=== PATIENT | female | born 1980 | race Hispanic/Latino ===

== ENCOUNTER 2017-12-24 11:54 | Day surgery (SDC) | payer OTHER ==
[2017-12-24 12:52] VITALS: BMI 27.2
[2017-12-24 13:28] LABS: Hemoglobin A1c 5.1 % (4.0-6.0)
[2017-12-24 13:43] LABS: ALT (SGPT) 28 U/L (8-55); AST (SGOT) 22 U/L (5-34); Albumin 3.4 g/dL (3.5-5.0); Alkaline Phosphatase 96 U/L (40-150); Anion Gap 10 mmol/L (10-20); BUN (Urea Nitrogen) 6 mg/dL (7.0-18.7); Bilirubin, Total 0.4 mg/dL (0.2-1.2); Calc. Creatinine Clearance 138 mL/min (70-130); Calcium 9.6 mg/dL (7.8-10.44); Carbon Dioxide 22 mmol/L (22-29); Chloride 107 mmol/L (98-107); Estimated GFR-MDRD Greater than 90; Globulin 3.2 g/dL (2.4-3.5); Glucose 78 mg/dL (70-105); Potassium 3.7 mmol/L (3.5-5.1); Protein, Total 6.6 g/dL (6.0-8.3); Sodium 135 mmol/L (136-145)
--- NOTE | 2017-12-24 14:31 | ULT ---
SONOGRAPHIC BIOPHYSICAL PROFILE EXAM LIMITED OBSTETRIC SONOGRAM: HISTORY: Abnormal office ultrasound. Polyhydramnios. Third-trimester . FINDINGS: Multiple transabdominal sonographic views of the gravid uterus show intrauterine gestation in cephali c presentation. Cervix is partially obscured. It is closed and measures up to 5.1 cm length. Grade II placenta is anterior. Four-chamber heart shows motion at 128 b.p.m. Three-vessel cord shows a n ormal insertion. spine and kidneys are intact as visualized. No gross intracranial abnormalit ies are apparent. Amniotic fluid index=28.4. Good tone and gross movements were demonstrated at sonography. Breathing movements were not do cumented. There is moderate distention of the right renal pelvis. Urinary bladder measures up to 4.8 cm diamet er. IMPRESSION: 1. Sonographic biophysical profile score is 6/8. 2. Polyhydramnios. 3. Distention of the urinary bladder, up to 4.8 cm. Mild right hydronephrosis of the fetus. POS: [facility]
== END 2017-12-24 15:42 | disposition home or self-care (01) ==
LOC: L&D/OP 11:54
PROVIDERS: ATTEND Student in an Organized Health Care Education/Training Program
DX: O28.3 Abnormal ultrasonic finding on antenatal screening of mother (principal); O40.3XX0 Polyhydramnios, third trimester, not applicable or unspecified; Z3A.00 Weeks of gestation of pregnancy not specified; Z79.899 Other long term (current) drug therapy; Z90.49 Acquired absence of other specified parts of digestive tract
CPT/HCPCS: 36415; 59025; 76819; 80053; 82239; 83036; 84443; 99282

== ENCOUNTER 2018-01-17 08:42 | Inpatient (IN) | payer MEDICAID, OTHER, SELFPAY ==
[2018-01-17] MEDS ORDERED: Carboprost 250 MCG/ML AMP IM PRN (23:34)
[2018-01-17] MEDS ORDERED: Misoprostol 200 MCG TAB PR PRN (23:34)
[2018-01-17] MEDS ORDERED: Ibuprofen 800 MG TAB PO PRN (23:34)
[2018-01-17] MEDS ORDERED: HYDROcodone/Acetaminophen 5/325 mg Tablet PO PRN (23:34)
[2018-01-17] MEDS ORDERED: Promethazine HCl 25 MG/ML VIAL IM PRN (23:34)
[2018-01-17] MEDS ORDERED: Diphenoxylate HCl/Atropine Tablet PO PRN (23:34)
[2018-01-17] MEDS ORDERED: Ondansetron HCl/PF 4 MG/2 ML Vial IVP PRN (23:34)
[2018-01-17] MEDS ORDERED: LR 500 ML/Oxytocin 10 units 500 ML IV SCH (23:34)
[2018-01-17] MEDS ORDERED: Lidocaine 1% (PF) 30 ML VIAL SC PRN (23:34)
[2018-01-17] MEDS ORDERED: Zolpidem Tartrate 5 MG TAB PO PRN (23:34)
[2018-01-17] MEDS ORDERED: Acetaminophen 500 MG TAB PO PRN (23:34)
[2018-01-17] MEDS ORDERED: Methylergonovine 0.2 MG/ML VIAL IM PRN (23:34)
[2018-01-17] MEDS: Lactated Ringer's 1,000 ML IV SCH (23:45)
[2018-01-17 23:48] LABS: Hemoglobin 13.8 g/dL (12.0-16.0); Mean Corpuscular HGB CONC 34.2 g/dL (32.0-36.0); Mean Corpuscular Hemoglobin 32.4 pg (27.0-31.0); Mean Corpuscular Volume 94.9 fl (81.0-99.0); Mean Platelet Volume 8.3 fL (7.4-10.4); Platelet Count 226 thou/uL (130-400); RBC Distribution Width 12.1 % (11.5-14.5); Red Blood Cell (RBC) Count 4.25 mill/uL (4.20-5.40); White Blood Cell (WBC) Count 9.9 thou/uL (4.8-10.8)
[2018-01-17 23:58] VITALS: BMI 24.9
[2018-01-18 00:26] LABS: Syphilis Antibody Nonreactive (Nonreactive); Syphilis Antibody Index 0.04 S/CO (<1.00 Non-Reactive)
[2018-01-18 00:27] LABS: HBSAg Index 0.13 S/CO (0-0.99); Hep B Surf Ag Non-Reactive S/CO (NonReactive)
[2018-01-18] MEDS: Misoprostol 100 MCG TAB VAG SCH ×4 (01:04→08:17)
[2018-01-18] MEDS: Lactated Ringer's 1,000 ML IV SCH ×3 (05:04→13:14)
--- NOTE | 2018-01-18 08:18 | PDOC.LDHP ---
Labor and Delivery H&P Chief complaint: scheduled induction HPI: 37yo at 39w0d by LMP here for IOL. Has polyhydramnios and hydronephrosis and enlarged bladder. s/p MFM consult. Pt is for outpt fu with pedi urology after discharge. Ctx pain 3/10, declines epidural. Current gestational age (weeks): 39 Due date: 01/24/18 Dating criteria: last menstrual period Grav: 4 Para: 3 Abnormal US findings: Yes (left hydronephrosis and hydroureter, ureterocele and enlarged bladder, poly) Past Medical History: hypothyroid Current medications: pre-ritu vitamins Previous surgical history: appendectomy Allergies/Adverse Reactions: Allergies Allergy/AdvReac Type Severity Reaction Status Date / Time No Known Allergies Allergy Verified 01/17/18 23:40 Social history: none - Physical Exam Vital signs reviewed and normal: yes General: NAD Heart: RRR Lungs: CTAB Abdomen: gravid Extremeties: no edema FHT: category 1 [place] contractions every: q2-5min - Vaginal Exam cm dilated: 3 Effacement: 50% Station: -3 (arom clear) - OB Labs Blood type: O RH: positive Antibody Screen: negative HIV: negative RPR: negative HEPSAg: negative 1 hour GCT: positive 3 hour GTT: negative GBS: negative Rubella: immune - Assessment L&D Assessment: medically indicated induction - Plan Plan: admit to L&D, cervical ripening (s/p cytotec x 1), labor augmentation if indicated, informed consent obtained, other (pedi urology follow up on discharge )
[2018-01-18] MEDS ORDERED: Eucerin (Mineral Oil/Petrolatum,White) 30 gm Jar TOP PRN (09:19)
[2018-01-18] MEDS ORDERED: diphenhydrAMINE 50 MG/ML VIAL IVP PRN (09:19)
[2018-01-18] MEDS ORDERED: Lactated Ringer's 500 ML IV PRN (09:19)
[2018-01-18] MEDS ORDERED: Naloxone HCl 0.4 mg/ml Vial IVP PRN ×2 (09:19)
[2018-01-18] MEDS ORDERED: Acetaminophen 325 MG TAB PO PRN (09:19)
[2018-01-18] MEDS ORDERED: Ondansetron HCl/PF 4 MG/2 ML Vial IVP PRN ×2 (09:19→17:45)
[2018-01-18] MEDS ORDERED: ePHEDrine/0.9% NaCl/PF SYRINGE 50 mg/10 ml SLOW IVP PRN (09:19)
[2018-01-18] MEDS ORDERED: Promethazine HCl 25 MG/ML VIAL IM PRN (09:19)
[2018-01-18] MEDS ORDERED: Communication Order-Pharmacy FS SCH (09:30)
[2018-01-18] MEDS ORDERED: Bupivacaine 0.5% 20 ML, Fentanyl 400 MCG in Sodium Chloride 0.9% 72 ML EPIDURAL SCH (09:30)
[2018-01-18] MEDS ORDERED: Fentanyl 4mcg/Marcaine 0.1% Cassette 100 ML EPIDURAL SCH (09:30)
[2018-01-18] MEDS: LR / Pitocin 40 units/1000 ml 1,000 ML IV PRN ×2 (16:40→17:39)
--- NOTE | 2018-01-18 16:46 | PDOC.OPDEL ---
OB Operative/Delivery Note Delivery Dr/Surgeon: Kayla Assist: n/a Pre-Delivery Diagnosis: medically indicated induction Procedure/Post Delivery Dx: spontaneous vaginal delivery Weeks gestation: 39 Anesthesia: epidural - Findings A Sex: female - 1 min: 8 - 5 min: 9 - Additional Findings/Plan Placenta delivered: spontaneous Repaired Obstetrical Laceration: none Estimated blood loss: 100 Post delivery plan: routine recovery
[2018-01-18] MEDS ORDERED: Adacel (T-DAP) 0.5 ML VIAL IM ONE (17:45)
[2018-01-18] MEDS ORDERED: Milk Of Magnesia 30 ML UDCUP PO PRN (17:45)
[2018-01-18] MEDS ORDERED: Lanolin Ointment 7 GM TUBE TOP PRN (17:45)
[2018-01-18] MEDS ORDERED: Benzocaine/Menthol 20-0.5% 60 ML CAN TOP PRN (17:45)
[2018-01-18] MEDS ORDERED: diphenhydrAMINE 25 MG CAP PO PRN (17:45)
[2018-01-18] MEDS ORDERED: Bisacodyl 10 MG SUPP PR PRN (17:45)
[2018-01-18] MEDS ORDERED: Preparation H Ointment 28 GM TUBE PR PRN (17:45)
[2018-01-18] MEDS ORDERED: HYDROcodone/Acetaminophen 5/325 mg Tablet PO PRN ×2 (17:45)
[2018-01-18] MEDS ORDERED: LR / Pitocin 40 units/1000 ml 1,000 ML IV SCH (17:45)
[2018-01-18] MEDS: Ibuprofen 800 MG TAB PO SCH (22:42)
[2018-01-18] MEDS: Ferrous Sulfate 325 MG TAB PO SCH (22:42)
[2018-01-18] MEDS: Docusate Calcium (SURFAK) 240 MG CAP PO SCH (22:42)
[2018-01-19] MEDS: Levothyroxine Sodium 50 MCG TAB PO SCH (05:24)
[2018-01-19] MEDS: Ibuprofen 800 MG TAB PO SCH ×3 (05:24→21:02)
[2018-01-19] MEDS: Prenatal Vitamin 1 TAB PO SCH (09:46)
[2018-01-19] MEDS: Docusate Calcium (SURFAK) 240 MG CAP PO SCH ×2 (09:46→21:02)
[2018-01-19] MEDS: Ferrous Sulfate 325 MG TAB PO SCH ×2 (09:46→18:24)
--- NOTE | 2018-01-19 09:52 | PDOC.PP ---
Post Progress Note Post Day #: 1 PO intake tolerated: yes Flatus: yes Ambulation: yes Vital Signs (12 hours) Temp Pulse Resp BP 01/19/18 08:22 97.7 F 80 20 118/72 01/19/18 08:00 97.7 F 80 20 01/19/18 05:25 97.9 F 97 16 123/68 01/19/18 00:30 98.2 F 65 16 98/56 L Weight Weight 145 lb - Physical Examination General: NAD Cardiovascular: RRR Respiratory: non-labored breathing Abdominal: no distention, appropriately TTP Fundus firm & at: umb Neurological: no gross focal deficits Psychiatric: normal affect Result Diagrams: 01/17/18 23:37 Additional Labs: Post Labs Blood Type O POSITIVE 01/17/18 23:37 Hep Bs Antigen Non-Reactive S/CO (NonReactive) 01/17/18 23:37 (1) Vaginal delivery Code(s): O80 - ENCOUNTER FOR FULL-TERM UNCOMPLICATED DELIVERY Status: Acute - Assessment/Plan PPD 1 from uncomplicated TSVD VSSAF Doing well lochia < menses Rh pos RImm Cont levothyroxine for hypothyroid Home tomorrow
[2018-01-20] MEDS: Ibuprofen 800 MG TAB PO SCH (05:27)
[2018-01-20] MEDS: Levothyroxine Sodium 50 MCG TAB PO SCH (05:27)
[2018-01-20 08:02] VITALS: BP 118/68; TEMP 98.4
[2018-01-20] MEDS: Prenatal Vitamin 1 TAB PO SCH (09:02)
[2018-01-20] MEDS: Docusate Calcium (SURFAK) 240 MG CAP PO SCH (09:02)
[2018-01-20] MEDS: Ferrous Sulfate 325 MG TAB PO SCH (09:02)
--- NOTE | 2018-01-20 11:08 | PDOC.PP ---
Post Progress Note Post Day #: 2 Subjective: no concerns, formula feeding PO intake tolerated: yes Flatus: yes Ambulation: yes Vital Signs (12 hours) Temp Pulse Resp BP 01/20/18 08:01 98.4 F 66 16 118/68 01/20/18 08:00 98.4 F 66 16 Weight Weight 145 lb - Physical Examination General: NAD Respiratory: non-labored breathing Abdominal: no distention Fundus firm & at: below umb Extremities: negative homans (B) Skin: CS incision dry & intact, no rash Psychiatric: A&Ox3, normal affect Result Diagrams: 01/17/18 23:37 Additional Labs: Post Labs Blood Type O POSITIVE 01/17/18 23:37 Hep Bs Antigen Non-Reactive S/CO (NonReactive) 01/17/18 23:37 (1) Vaginal delivery Code(s): O80 - ENCOUNTER FOR FULL-TERM UNCOMPLICATED DELIVERY Status: Acute - Assessment/Plan PPD2 doing well, DC home today.
== END 2018-01-20 14:00 | disposition home or self-care (01) | DRG 775 ==
LOC: L&D 22:58 → 3SW 01-18 21:34
PROVIDERS: ADMIT Student in an Organized Health Care Education/Training Program; ATTEND Student in an Organized Health Care Education/Training Program
PROC: 3E0P7VZ Introduction of Hormone into Female Reproductive, Via Natural or Artificial Opening (ICD-10-PCS; 2018-01-17)
PROC: 10E0XZZ Delivery of Products of Conception, External Approach (ICD-10-PCS; principal; 2018-01-18)
PROC: 10907ZC Drainage of Amniotic Fluid, Therapeutic from Products of Conception, Via Natural or Artificial Opening (ICD-10-PCS; 2018-01-18)
DX: O40.3XX0 Polyhydramnios, third trimester, not applicable or unspecified (principal); E03.9 Hypothyroidism, unspecified; O35.8XX0 Maternal care for other (suspected) fetal abnormality and damage, not applicable or unspecified; O99.284 Endocrine, nutritional and metabolic diseases complicating childbirth; Z3A.39 39 weeks gestation of pregnancy; Z79.899 Other long term (current) drug therapy; Z37.0 Single live birth
CPT/HCPCS: 36415; 51702; 85027; 86780; 87340; 90715; J0595; J3010; J3490; J7050; J7120

== ENCOUNTER 2024-04-11 13:16 | Outpatient (CLI) | payer OTHER | END 2024-04-11 13:17 | disposition home or self-care (01) | LOC: BICRAD 13:16 | PROVIDERS: ATTEND Internal Medicine | DX: R05.3 Chronic cough (principal) | CPT/HCPCS: 71046 ==